=== PATIENT | female | born 1960 | race African-American/Black ===

== ENCOUNTER 2022-05-21 06:33 | Inpatient (IN) | payer OTHER ==
[2022-05-18 15:48] VITALS: BMI 28.3
[2022-05-21] MEDS ORDERED: Promethazine 25 MG TAB PO PRN (07:17)
[2022-05-21] MEDS ORDERED: traMADol HCl 50 MG TAB PO PRN (07:17)
[2022-05-21] MEDS ORDERED: Ondansetron PF 4 MG/2 ML Vial IVP PRN (07:17)
[2022-05-21] MEDS ORDERED: diphenhydrAMINE 25 MG CAP PO PRN (07:17)
[2022-05-21] MEDS ORDERED: HYDROcodone/Acetaminophen 10/325 mg Tablet PO PRN (07:17)
[2022-05-21] MEDS ORDERED: Mag-Al 1200 mg/1200 mg/30 ML UDCUP PO PRN (07:17)
[2022-05-21] MEDS ORDERED: Milk Of Magnesia 30 ML UDCUP PO PRN (07:17)
[2022-05-21] MEDS ORDERED: tiZANidine HCl 4 MG TAB PO PRN (07:21)
[2022-05-21] MEDS ORDERED: Methocarbamol 500 MG TAB PO PRN (07:21)
[2022-05-21] MEDS ORDERED: Dextrose 5% in Water 1,000 ML IV PRN (07:23)
[2022-05-21] MEDS ORDERED: Dextrose 50% Abboject 50 ML SYRINGE SLOW IVP PRN (07:23)
[2022-05-21] MEDS ORDERED: Clindamycin/D5W 900 mg/50 ml Premix Bag ONE (07:38)
[2022-05-21] MEDS ORDERED: Levofloxacin 500 mg/D5W 100 ml Premix Bag ONE (07:38)
[2022-05-21 07:43] LABS: Hemoglobin 13.5 g/dL (12.0-16.0); Mean Corpuscular HGB CONC 32.9 g/dL (32.0-36.0); Mean Corpuscular Hemoglobin 30.2 pg (27.0-31.0); Mean Corpuscular Volume 91.8 fl (78.0-98.0); Mean Platelet Volume 7.4 fL (7.4-10.4); Platelet Count 345 10x3/uL (130-400); RBC Distribution Width 12.7 % (11.5-14.5); Red Blood Cell (RBC) Count 4.49 mill/uL (4.20-5.40); White Blood Cell (WBC) Count 9.5 10x3/uL (4.8-10.8)
[2022-05-21] MEDS ORDERED: HYDROmorphone 0.5 MG/0.5 ML SYRINGE ONE (07:51)
[2022-05-21] MEDS ORDERED: fentaNYL PF 100 MCG/2 ML SYRINGE ONE (07:51)
[2022-05-21 08:04] LABS: Anion Gap 11 mmol/L (10-20); BUN (Urea Nitrogen) 10 mg/dL (9.8-20.1); Calc. Creatinine Clearance 88 mL/min (70-130); Calcium 9.8 mg/dL (7.8-10.44); Carbon Dioxide 28 mmol/L (23-31); Chloride 106 mmol/L (98-107); Estimated GFR 87; Glucose 118 mg/dL (80-115); Sodium 141 mmol/L (136-145)
[2022-05-21] MEDS ORDERED: Rocuronium Bromide 10 MG/ML (10ML VIAL) ONE (08:31)
[2022-05-21] MEDS ORDERED: Ondansetron PF 4 MG/2 ML Vial ONE (08:31)
[2022-05-21] MEDS ORDERED: PROPOFOL 200 MG/20 ML VIAL ONE (08:31)
[2022-05-21] MEDS ORDERED: Lidocaine 1% PF 5 ML VIAL ONE (08:31)
[2022-05-21] MEDS ORDERED: Dexamethasone 20 MG/5 ML VIAL ONE (08:31)
[2022-05-21] MEDS ORDERED: Albuterol HFA (OR) 200 PUFF INH ONE ×2 (08:31→09:31)
[2022-05-21] MEDS ORDERED: PHENYLEPHRINE-NS 100 MCG/ML 10 ML SYRINGE ONE (08:31)
[2022-05-21] MEDS ORDERED: Glycopyrrolate 0.2 MG/ML 5 ML SYRINGE ONE (08:31)
[2022-05-21] MEDS ORDERED: NEOSTIGMINE 3 MG/3 ML SYR 3 MG/3 ML SYRINGE ONE (08:31)
[2022-05-21 09:48] LABS: SARS-CoV-2 NAA Rapid Test Not Detected (NotDetected)
[2022-05-21] MEDS ORDERED: Fentanyl 100 MCG/2 ML VIAL ONE ×2 (09:59→10:24)
[2022-05-21] MEDS ORDERED: Ondansetron HCl/PF 4 MG/2 ML Vial IVP PRN (10:02)
[2022-05-21] MEDS ORDERED: Promethazine HCl 25 MG/ML VIAL IM PRN (10:02)
[2022-05-21] MEDS ORDERED: HYDROmorphone 2 MG/ML VIAL SLOW IVP PRN (10:02)
[2022-05-21] MEDS ORDERED: Promethazine HCl 25 MG/ML VIAL ONE (10:20)
[2022-05-21] MEDS: Sodium Chloride 0.9% 1,000 ML IV SCH ×2 (14:04→22:25)
[2022-05-21] MEDS: Losartan 25 MG TAB PO SCH (14:07)
[2022-05-21] MEDS: NIFEdipine XL 60 MG TAB PO SCH (14:07)
[2022-05-21] MEDS: Clindamycin/D5W 900 MG in Premix Bag 1 BAG IVPB SCH ×2 (14:17→20:59)
[2022-05-21] MEDS: Morphine 2 MG/ML VIAL SLOW IVP PRN ×2 (14:18→18:36)
[2022-05-21] MEDS ORDERED: FLU VACC QS2022-23(6MOS UP)/PF 60 MCG/0.5 ML SYRINGE IM ONE (17:45)
[2022-05-21] MEDS: HYDROcodone/Acetaminophen 10/325 mg Tablet PO PRN (20:56)
[2022-05-21] MEDS ORDERED: Acetaminophen 325 MG TAB PO PRN (20:59)
[2022-05-21] MEDS ORDERED: Acetaminophen 650 MG Suppository PR PRN (20:59)
[2022-05-21] MEDS ORDERED: HumaLOG 300 UNITS/3 ML VIAL SC PRN (22:37)
[2022-05-22] MEDS: HYDROcodone/Acetaminophen 10/325 mg Tablet PO PRN ×4 (04:37→20:42)
[2022-05-22] MEDS: Clindamycin/D5W 900 MG in Premix Bag 1 BAG IVPB SCH ×3 (05:19→20:42)
[2022-05-22] MEDS: Dexamethasone 4 mg/ml Vial SLOW IVP SCH ×3 (06:47→20:42)
[2022-05-22] MEDS: HumaLOG 300 UNITS/3 ML VIAL SC PRN ×3 (06:48→16:51)
[2022-05-22 06:50] LABS: #Lymphocytes 3.8 thou/uL (1.20-3.40); #Monocytes 1.6 thou/uL (0.11-0.59); #Neutrophils 12.2 thou/uL (1.40-6.50); %Basophils 0.2 % (0.0-1.0); %Eosinophils 0.3 % (0.0-10.0); %Lymphocytes 21.5 % (21.0-51.0); %Monocytes 9.1 % (0.0-10.0); Hemoglobin 13.3 g/dL (12.0-16.0); Mean Corpuscular HGB CONC 33.9 g/dL (32.0-36.0); Mean Corpuscular Hemoglobin 30.5 pg (27.0-31.0); Mean Platelet Volume 7.6 fL (7.4-10.4); Platelet Count 350 10x3/uL (130-400); RBC Distribution Width 12.6 % (11.5-14.5); Red Blood Cell (RBC) Count 4.35 mill/uL (4.20-5.40); White Blood Cell (WBC) Count 17.7 10x3/uL (4.8-10.8)
[2022-05-22 06:56] LABS: Hemoglobin A1c 6.2 % (4.0-6.0)
[2022-05-22 07:16] LABS: ALT (SGPT) 13 U/L (8-55); AST (SGOT) 20 U/L (5-34); Albumin 3.9 g/dL (3.4-4.8); Alkaline Phosphatase 77 U/L (40-110); Anion Gap 14 mmol/L (10-20); BUN (Urea Nitrogen) 11 mg/dL (9.8-20.1); Bilirubin, Total 0.7 mg/dL (0.2-1.2); Calc. Creatinine Clearance 91 mL/min (70-130); Calcium 9.4 mg/dL (7.8-10.44); Carbon Dioxide 23 mmol/L (23-31); Chloride 102 mmol/L (98-107); Estimated GFR 89; Globulin 3.9 g/dL (2.4-3.5); Glucose 178 mg/dL (80-115); Potassium 3.8 mmol/L (3.5-5.1); Protein, Total 7.8 g/dL (5.8-8.1); Sodium 135 mmol/L (136-145)
[2022-05-22] MEDS: Docusate 100 MG CAP PO SCH (08:36)
[2022-05-22] MEDS: NIFEdipine XL 60 MG TAB PO SCH (08:36)
[2022-05-22] MEDS: Empagliflozin 25 MG TAB PO SCH (08:36)
[2022-05-22] MEDS: Losartan 25 MG TAB PO SCH (08:37)
[2022-05-22] MEDS: Sodium Chloride 0.9% 1,000 ML IV SCH (08:37)
[2022-05-22] MEDS ORDERED: Non-Formulary Item 1 EACH (Omeprazole [Omeprazole] 20 MG Tab.Rap.Dr) PO SCH (09:00)
[2022-05-22] MEDS ORDERED: Non-Formulary Item 1 EACH (Liraglutide [Victoza 3-Pak] 0.6 MG/0.1 ML Pen.Injctr) SC SCH (09:00)
[2022-05-22] MEDS ORDERED: Non-Formulary Item 1 EACH (Losartan Potassium [Losartan Potassium] 100 MG Tablet) PO SCH (09:00)
[2022-05-22] MEDS ORDERED: NIFEdipine XL 60 MG TAB PO SCH (09:00)
[2022-05-22] MEDS ORDERED: Atorvastatin Calcium 40 MG TAB PO SCH (21:00)
[2022-05-23] MEDS: Sodium Chloride 0.9% 1,000 ML IV SCH ×2 (02:56→10:38)
[2022-05-23] MEDS: Clindamycin/D5W 900 MG in Premix Bag 1 BAG IVPB SCH (05:43)
[2022-05-23] MEDS: Dexamethasone 4 mg/ml Vial SLOW IVP SCH (05:43)
[2022-05-23] MEDS: HumaLOG 300 UNITS/3 ML VIAL SC PRN (05:50)
[2022-05-23] MEDS: HYDROcodone/Acetaminophen 10/325 mg Tablet PO PRN (05:52)
[2022-05-23] MEDS: NIFEdipine XL 60 MG TAB PO SCH (08:46)
[2022-05-23] MEDS: Empagliflozin 25 MG TAB PO SCH (08:46)
[2022-05-23] MEDS: Docusate 100 MG CAP PO SCH (08:46)
[2022-05-23] MEDS: Losartan 25 MG TAB PO SCH (08:46)
[2022-05-23 08:48] VITALS: BP 146/87
[2022-05-23 09:03] VITALS: TEMP 98.2
== END 2022-05-23 11:10 | disposition home or self-care (01) | DRG 472 ==
LOC: SURG A 06:33 → EDSTATUS 14:29
PROVIDERS: ADMIT Neurological Surgery; ATTEND Neurological Surgery
PROC: 0RG20A0 Fusion of 2 or more Cervical Vertebral Joints with Interbody Fusion Device, Anterior Approach, Anterior Column, Open Approach (ICD-10-PCS; principal; 2022-05-21)
PROC: 0RB30ZZ Excision of Cervical Vertebral Disc, Open Approach (ICD-10-PCS; 2022-05-21)
DX: M48.02 Spinal stenosis, cervical region (principal); M47.12 Other spondylosis with myelopathy, cervical region; M50.31 Other cervical disc degeneration, high cervical region; G89.4 Chronic pain syndrome; E11.9 Type 2 diabetes mellitus without complications; E03.9 Hypothyroidism, unspecified; I10 Essential (primary) hypertension; Z88.6 Allergy status to analgesic agent; Z88.0 Allergy status to penicillin; Z88.5 Allergy status to narcotic agent; Z98.890 Other specified postprocedural states; Z79.84 Long term (current) use of oral hypoglycemic drugs; Z79.82 Long term (current) use of aspirin; Z79.899 Other long term (current) drug therapy
CPT/HCPCS: 36415; 36416; 80048; 80053; 83036; 84443; 85025; 85027; 93005; 93010; C1713; J1100; J1170; J1815; J1956; J2272; J2405; J2550; J2704; J3010; J3490; U0002